=== PATIENT | female | born 1980 | race African-American/Black ===

== ENCOUNTER 2018-11-11 16:16 | Emergency (ER) | payer SELFPAY ==
[~2018-11-11] VITALS: Ht 177.8 cm; Wt 113.4 kg
[~2018-11-11 16:16] MED LIST: PREN-96 PO
[2018-11-11 16:28] VITALS: BP 115/84
[2018-11-11] MEDS ORDERED: ALBUTEROL SULF 2.5 MG/0.5ML(0.5%) NEB SOLN NEB ONE (17:45)
[2018-11-11] MEDS ORDERED: IPRATROPIUM BROM 0.5 MG/2.5ML INH SOL NEB ONE (17:45)
== END 2018-11-11 18:26 | disposition home or self-care (01) ==
LOC: EDUNIT# 16:16 → ER 16:16 → EDBD 16:16 → ER 18:26
DX: J98.01 Acute bronchospasm (principal)
CPT/HCPCS: 94640; 99283; J7611; J7644